=== PATIENT | female | born 1965 | race Caucasian/White ===

== ENCOUNTER 2018-09-29 09:39 | Emergency (ER) | payer OTHER ==
[2018-09-29] MEDS: IBUPROFEN 600 MG TAB PO (10:16)
== END 2018-09-29 11:45 | disposition home or self-care (01) ==
LOC: FTE 09:39
DX: S63.617A Unspecified sprain of left little finger, initial encounter (principal); X58.XXXA Exposure to other specified factors, initial encounter; Y92.9 Unspecified place or not applicable
CPT/HCPCS: 29130; 73130-LT; 99283-25